=== PATIENT | female | born 1950 | race Caucasian/White ===

== ENCOUNTER → 2024-08-06 07:29 | Outpatient (REF) | payer MEDICARE, SELFPAY | LOC: HWWDC 07:29 | PROVIDERS: ATTENDING PHYSICIAN Family Medicine | DX: Z12.31 Encounter for screening mammogram for malignant neoplasm of breast (principal); I27.20 Pulmonary hypertension, unspecified | CPT/HCPCS: 71046; 77063; 77067 ==

== ENCOUNTER → 2025-05-19 14:19 | Outpatient (REF) | payer MEDICARE, SELFPAY | LOC: HWRAD 14:19 | PROVIDERS: ATTENDING PHYSICIAN Internal Medicine Rheumatology; FAMILY PHYSICIAN Family Medicine | DX: M81.0 Age-related osteoporosis without current pathological fracture (principal) | CPT/HCPCS: 77080 ==

== ENCOUNTER → 2025-07-11 08:04 | Outpatient (REF) | payer MEDICARE, SELFPAY | LOC: HWRCS 08:04 | PROVIDERS: ATTENDING PHYSICIAN Family Medicine | DX: I27.20 Pulmonary hypertension, unspecified (principal) | CPT/HCPCS: 93306 ==